=== PATIENT | male | born 1950 | race Two or more races ===

== ENCOUNTER 2022-09-09 09:10 | Outpatient (CLI) | payer OTHER ==
[~2022-09-09 09:10] MED LIST: AMLODIPINE-OLM1 EACH; B COMPLEX1 EACH; HYZAAR 100-251 EACH; INTEGRA CAPSUL1 EACH; LIPITOR40 MG; PROAIR RESPICL90 MCG; XARELTO20 MG; XELPROS2.5 ML
== END 2022-09-09 09:12 | disposition home or self-care (01) ==
LOC: TOM 09:10
PROVIDERS: ATTEND Internal Medicine Pulmonary Disease
DX: R91.8 Other nonspecific abnormal finding of lung field (principal); R91.1 Solitary pulmonary nodule